=== PATIENT | male | born 1975 | race Two or more races ===

== ENCOUNTER 2024-06-01 18:31 | Emergency (ER) | payer SELFPAY ==
[~2024-06-01] VITALS: Ht 180.3 cm; Wt 60.3 kg
[2024-06-01 18:44] VITALS: BP 161/108; TEMP 98; O2SAT 99
== END 2024-06-01 19:30 | disposition left against medical advice (07) ==
LOC: ER 18:37
DX: R94.31 Abnormal electrocardiogram [ECG] [EKG] (principal); Z53.21 Procedure and treatment not carried out due to patient leaving prior to being seen by health care provider